=== PATIENT | male | born 2000 | race African-American/Black ===

== ENCOUNTER 2022-01-23 19:24 | Emergency (ER) | payer SELFPAY ==
[~2022-01-23] VITALS: Ht 172.7 cm; Wt 80.0 kg
[2022-01-23] MEDS ORDERED: LORAZEPAM 2MG/ML CPJ IM ONE (19:45)
[2022-01-23] MEDS ORDERED: OLANZAPINE 10 MG/VIAL IM ONE (19:45)
[2022-01-23 20:23] LABS: HEMATOCRIT. 42.6 % (42.0-52.0); MEAN CORPUSCULAR HEMOGLOBIN 33.1 pg (28.0-32.0); MEAN CORPUSCULAR VOLUME 93.9 fL (80.0-94.0); MEAN PLATELET VOLUME 8.2 fl (7.4-10.4); PLATELET 199 x1000/uL (130-400); RED BLOOD CELL COUNT 4.54 mill/uL (4.7-6.1); RED CELL DISTRIBUTION WIDTH 13.5 % (11.6-14.6)
[2022-01-23 20:32] LABS: CHLORIDE 108 mEq/L (98-107)
[2022-01-23 20:39] LABS: ETHANOL BLOOD < 10 mg/dL
[2022-01-23] MEDS ORDERED: SODIUM CHLORIDE 0.9% 1,000 ML IV ONE ×2 (20:45→23:15)
[2022-01-23 21:01] LABS: PLATELET ESTIMATE NORMAL
[2022-01-23] MEDS ORDERED: LORAZEPAM 2MG/ML CPJ IV ONE ×2 (22:30→23:15)
[2022-01-23 23:11] LABS: CLARITY URINE CLEAR (CLEAR); COLOR URINE DARK YELLOW (YELLOW); KETONES URINE 2+ (NEGATIVE); LEUKOCYTE ESTERASE URINE TRACE (NEGATIVE); NITRITE URINE NEGATIVE (NEGATIVE); OCCULT BLOOD URINE NEGATIVE (NEGATIVE); PH URINE >=9.0 (4.5-8.0); PROTEIN URINE 1+ (NEGATIVE); SPECIFIC GRAVITY URINE 1.028 (1.005-1.030)
[2022-01-23 23:12] LABS: *AMPHETAMINES SCREEN URINE NEGATIVE (NEGATIVE); *BARBITURATES SCREEN URINE NEGATIVE (NEGATIVE); *BENZODIAZEPINES SCREEN URINE NEGATIVE (NEGATIVE); *COCAINE SCREEN URINE NEGATIVE (NEGATIVE); CANNABINOID URINE SCREEN PRESUMTIVE POSITIVE (NEGATIVE); METHADONE URINE SCREEN NEGATIVE (NEGATIVE); OPIATES URINE SCREEN NEGATIVE (NEGATIVE); PHENCYCLIDINE URINE SCREEN NEGATIVE (NEGATIVE)
[2022-01-24] MEDS ORDERED: ONDANSETRON HCL 4MG/2ML INJ IV ONE (05:15)
[2022-01-24 06:25] VITALS: BP 114/54
== END 2022-01-24 10:08 | disposition left against medical advice (07) ==
LOC: ER 19:24
DX: F41.9 Anxiety disorder, unspecified (principal); D72.829 Elevated white blood cell count, unspecified; R45.6 Violent behavior; K21.9 Gastro-esophageal reflux disease without esophagitis
CPT/HCPCS: 36415; 80053; 80305; 80307; 80320; 80329; 81003; 85025; 87040; 87086; 96361; 96372; 96374; 96375; 99291; J2060; J2405; J3490; J7030; G0480